=== PATIENT | male | born 1985 | race Caucasian/White ===

== ENCOUNTER 2024-12-29 09:49 | Emergency (ER) | payer OTHER ==
[~2024-12-29] VITALS: Ht 175.3 cm; Wt 95.5 kg
[2024-12-29] MEDS ORDERED: SUCR1TAB56 PO (10:35)
[2024-12-29] MEDS ORDERED: PANT40TA29 PO (10:35)
[2024-12-29 11:30] LABS: BASO # 0.0 10^3/uL (0.0-0.2); BASO % 0.2 % (0.0-1.0); EOS # 0.0 10^3/uL (0.0-0.5); EOS % 0.1 % (0.0-3.0); LYMPH # 2.5 10^3/uL (1.5-5.0); LYMPH % 14.0 % (24.0-44.0); MONO # 1.2 10^3/uL (0.0-0.8); MONO % 6.8 % (2.0-8.0); NEUTROPHILS # 14.2 10^3/uL (1.5-8.5); NEUTROPHILS % 78.6 % (36.0-66.0); PLATELET COUNT, AUTOMATED 270 10^3/uL (150-450)
[2024-12-29] MEDS ORDERED: SUMA100T2 PO (11:43)
[2024-12-29] MEDS ORDERED: HOME MED LIST COMPLETE! XX SCH (11:45)
[2024-12-29 11:59] LABS: ALT/SGPT 35.0 U/L (7.0-40); AST/SGOT 42.0 U/L (<34); CALCIUM LEVEL 9.4 MG/DL (8.5-10.1); CARBON DIOXIDE LEVEL 28.0 MMOL/L (20-31); CHLORIDE LEVEL 102.0 MMOL/L (98-107); CREATININE FOR GFR 1.22 MG/DL (0.70-1.30); GLOMERULAR FILTRATION RATE 78.3 (>60); POTASSIUM SERUM 4.0 MMOL/L (3.5-5.1); SODIUM LEVEL 142.0 MMOL/L (136-145)
[2024-12-29] MEDS: GASTROGRAFIN SOLUTION 30ML PO SCH (13:45)
[2024-12-29] MEDS ORDERED: ISOVUE-370 76% 100 ML VIAL As Ordered ONE (15:24)
[2024-12-29 16:30] VITALS: BP 154/84; TEMP 98; O2SAT 97
== END 2024-12-29 16:58 | disposition home or self-care (01) ==
LOC: M ED 09:49 → EDBD 09:49 → M ED 16:58
DX: K29.70 Gastritis, unspecified, without bleeding (principal); K21.9 Gastro-esophageal reflux disease without esophagitis
CPT/HCPCS: 74177; 80048; 80076; 83690; 85025; 93005; 99285; Q9963; Q9967

== ENCOUNTER 2025-01-04 10:39 | Inpatient (IN) | payer OTHER ==
[~2025-01-04] VITALS: Ht 175.3 cm; Wt 93.6 kg
[~2025-01-04 10:39] MED LIST: PANT40TA29 PO; SUCR1TAB56 PO; SUMA100T2 PO
[2025-01-04 11:24] LABS: PLATELET COUNT, AUTOMATED 257 10^3/uL (150-450)
[2025-01-04 11:49] LABS: ETHYL ALCOHOL (ETHANOL) < 0.003 % (0.000-0.010)
[2025-01-04 11:51] LABS: ALT/SGPT 32 U/L (7.0-40); AST/SGOT 28 U/L (<34); CALCIUM LEVEL 9.4 MG/DL (8.5-10.1); CARBON DIOXIDE LEVEL 25 MMOL/L (20-31); CHLORIDE LEVEL 105 MMOL/L (98-107); CREATININE FOR GFR 1.01 MG/DL (0.70-1.30); GLOMERULAR FILTRATION RATE > 90.0 (>60); POTASSIUM SERUM 3.8 MMOL/L (3.5-5.1); SALICYLATE LEVEL < 3.0 MG/DL (<30); SODIUM LEVEL 141 MMOL/L (136-145)
[2025-01-04 11:58] LABS: AMPHETAMINES LEVEL URINE NEGATIVE (NEGATIVE); BARBITURATES URINE NEGATIVE (NEGATIVE); BENZODIAZEPINES URINE NEGATIVE (NEGATIVE); CANNABINOIDS URINE NEGATIVE (NEGATIVE); COCAINE METABOLITE URINE NEGATIVE (NEGATIVE); METHADONE URINE NEGATIVE (NEGATIVE); OPIATES URINE NEGATIVE (NEGATIVE); PHENCYCLIDINE URINE NEGATIVE (NEGATIVE)
[2025-01-04] MEDS ORDERED: ACETAMINOPHEN 325 MG TAB PO PRN (13:20)
[2025-01-04] MEDS ORDERED: MOM 30 ML SUSPENSION UDC PO PRN (13:20)
[2025-01-04] MEDS ORDERED: MAALOX 30 ML SUSP *UDC PO PRN (13:20)
[2025-01-04] MEDS ORDERED: IBUPROFEN 400 MG TAB PO PRN (13:20)
[2025-01-04] MEDS ORDERED: traZODone 50 MG TAB PO PRN (13:20)
[2025-01-04] MEDS ORDERED: SUMA50TA2 PO (13:55)
[2025-01-04] MEDS ORDERED: HOME MED LIST COMPLETE! XX SCH (13:55)
[2025-01-04 18:05] VITALS: BP 123/62; TEMP 98.7; O2SAT 98
[2025-01-04 18:53] VITALS: BP 116/78; TEMP 97.9; O2SAT 98
[2025-01-05 06:16] VITALS: BP 131/67; TEMP 98; O2SAT 98
[2025-01-05] MEDS ORDERED: SUMAtriptan SUCCINATE 50MG TABLET PO PRN (09:05)
[2025-01-05] MEDS: ESCITALOPRAM OXALATE 10 MG TABLET PO SCH (09:32)
[2025-01-05 15:22] VITALS: BP 114/68; TEMP 97.4; O2SAT 98
[2025-01-05] MEDS: SUCRALFATE 1 GM TAB PO SCH (17:27)
[2025-01-05] MEDS: PRAZOSIN 1 MG CAP PO SCH (20:23)
[2025-01-06 06:44] VITALS: BP 120/63; TEMP 98.4; O2SAT 98
[2025-01-06] MEDS: IBUPROFEN 800 MG TAB PO ONE (09:37)
[2025-01-06] MEDS: PANTOPRAZOLE 40MG TAB PO SCH (10:58)
[2025-01-06 14:59] VITALS: BP 120/66; TEMP 98.1; O2SAT 98
[2025-01-06] MEDS: SUCRALFATE 1 GM TAB PO SCH (15:45)
[2025-01-06 20:18] VITALS: BP 115/60
[2025-01-06] MEDS: OLANZapine 5 MG TAB PO SCH (20:19)
[2025-01-06] MEDS: traZODone 50 MG TAB PO SCH (20:19)
[2025-01-07 06:48] VITALS: BP 109/57; TEMP 98.8; O2SAT 98
[2025-01-07] MEDS: ESCITALOPRAM OXALATE 10 MG TABLET PO SCH (08:06)
[2025-01-07] MEDS ORDERED: TRAZ-252 PO (08:32)
[2025-01-07] MEDS ORDERED: LEXA1TAB PO (08:32)
[2025-01-07] MEDS ORDERED: PRAZ5CAP PO (08:32)
[2025-01-07] MEDS ORDERED: BENA2CRE3 TOP (08:32)
[2025-01-07] MEDS ORDERED: DIPH50CA PO (08:32)
[2025-01-07] MEDS: IBUPROFEN 800 MG TAB PO ONE (08:46)
[2025-01-07] MEDS: LORazepam 1 MG TAB PO ONE (08:47)
== END 2025-01-07 09:10 | disposition home or self-care (01) | DRG 885 ==
LOC: M ED 10:39 → M ED INP 13:20 → M PSY 15:44
PROVIDERS: ADMIT General Practice; ATTEND General Practice
DX: F32.1 Major depressive disorder, single episode, moderate (principal); R45.851 Suicidal ideations; F43.10 Post-traumatic stress disorder, unspecified; F41.1 Generalized anxiety disorder; G43.909 Migraine, unspecified, not intractable, without status migrainosus; K21.9 Gastro-esophageal reflux disease without esophagitis; Z79.899 Other long term (current) drug therapy; R21 Rash and other nonspecific skin eruption; Z91.82 Personal history of military deployment